=== PATIENT | female | born 1955 | race Caucasian/White ===

== ENCOUNTER 2024-03-09 08:30 | Outpatient (CLI) | payer MEDICARE, OTHER | END 2024-03-09 23:59 | disposition home or self-care (01) | LOC: MRI02 08:30 | PROVIDERS: ATTEND Podiatrist Foot & Ankle Surgery | DX: S91.012A Laceration without foreign body, left ankle, initial encounter (principal); S86.212A Strain of muscle(s) and tendon(s) of anterior muscle group at lower leg level, left leg, initial encounter; M79.671 Pain in right foot; G57.52 Tarsal tunnel syndrome, left lower limb; M19.072 Primary osteoarthritis, left ankle and foot; M72.2 Plantar fascial fibromatosis; M20.42 Other hammer toe(s) (acquired), left foot; M79.672 Pain in left foot; M25.375 Other instability, left foot; M79.89 Other specified soft tissue disorders; L60.0 Ingrowing nail; X58.XXXA Exposure to other specified factors, initial encounter; Y93.89 Activity, other specified; Y92.89 Other specified places as the place of occurrence of the external cause; Y99.8 Other external cause status | CPT/HCPCS: 73721 ==